=== PATIENT | female | born 2000 | race Caucasian/White ===

== ENCOUNTER 2019-08-24 23:30 | Inpatient (IN) | payer OTHER ==
[~2019-08-24] VITALS: Ht 165.1 cm; Wt 100.7 kg
[2019-08-25] MEDS ORDERED: VITAFOL-OB+DHA1 EACH PO (02:40)
== END 2019-08-27 11:25 | disposition home or self-care (01) | DRG 807 ==
LOC: FBCO 23:30 → FBC 08-25 02:19
PROVIDERS: ADMIT General Practice
PROC: 10E0XZZ Delivery of Products of Conception, External Approach (ICD-10-PCS; principal; 2019-08-25)
PROC: 0KQM0ZZ Repair Perineum Muscle, Open Approach (ICD-10-PCS; 2019-08-25)
PROC: 10907ZC Drainage of Amniotic Fluid, Therapeutic from Products of Conception, Via Natural or Artificial Opening (ICD-10-PCS; 2019-08-25)
PROC: 00HU33Z Insertion of Infusion Device into Spinal Canal, Percutaneous Approach (ICD-10-PCS; 2019-08-25)
PROC: 3E0R3BZ Introduction of Anesthetic Agent into Spinal Canal, Percutaneous Approach (ICD-10-PCS; 2019-08-25)
DX: O69.1XX0 Labor and delivery complicated by cord around neck, with compression, not applicable or unspecified (principal); Z37.0 Single live birth; Z3A.39 39 weeks gestation of pregnancy; O70.1 Second degree perineal laceration during delivery; O75.89 Other specified complications of labor and delivery; O99.214 Obesity complicating childbirth; E66.9 Obesity, unspecified; O26.13 Low weight gain in pregnancy, third trimester
CPT/HCPCS: 36415; 59025; 85027; 99213; A9270; J2210; J2590; J2795; J7121